=== PATIENT | female | born 1960 | race Hispanic/Latino ===

== ENCOUNTER 2018-05-20 07:23 | Day surgery (SDC) | payer BC ==
[2017-03-18 16:15] VITALS: BMI 30.2
[2018-05-20] MEDS ORDERED: Lactated Ringer's 500 ML IV ONE (07:38)
[2018-05-20] MEDS ORDERED: Propofol 10 mg/ml Inj (20 ML) ONE (08:07)
[2018-05-20] MEDS ORDERED: Midazolam 2 MG/2 ML VIAL ONE (08:07)
[2018-05-20 09:10] VITALS: TEMP 97.5; O2SAT 99
[2018-05-20 09:13] VITALS: BP 104/77; PULSE 62; RESP 16
== END 2018-05-20 09:30 | disposition home or self-care (01) ==
LOC: H.ENDO 07:23
PROVIDERS: ATTEND Internal Medicine Gastroenterology
DX: Z12.11 Encounter for screening for malignant neoplasm of colon (principal); K57.30 Diverticulosis of large intestine without perforation or abscess without bleeding; K64.9 Unspecified hemorrhoids; K62.6 Ulcer of anus and rectum
CPT/HCPCS: 45380; 88305; J2250; J2704; J7120